=== PATIENT | female | born 1960 | race Caucasian/White ===

== ENCOUNTER 2023-10-01 21:54 | Emergency (ER) | payer MEDICARE, MEDICAID ==
[~2023-10-01] VITALS: Ht 160 cm; Wt 70.3 kg
[2023-10-01] MEDS ORDERED: EPINEPHrine 5 MG in DEXTROSE 5%-WATER 245 ML IV PRN (22:15)
[2023-10-01 22:17] VITALS: BP 114/82; PULSE 59; RESP 12
[2023-10-01 22:43] LABS: MEAN CORPUSCULAR VOLUME 91 fL (80-100); RED BLOOD CELL COUNT(AUTO) 0.55 MIL/uL (4.00-5.20)
[2023-10-01 22:46] LABS: BASOPHILS % (AUTO) 1.8 % (0.0-2.0); EOSINOPHILS % (AUTO) 14.2 % (1.0-6.0); LYMPHOCYTES # (AUTO) 0.1 K/uL (1.0-4.8); LYMPHOCYTES % (AUTO) 16.1 % (22.0-44.0); MEAN CORPUSCULAR HEMOGLOBIN 25.3 pg (26.0-34.0); MEAN CORPUSCULAR HGB CONC 27.7 G/dL (31.0-37.0); MONOCYTES % (AUTO) 6.2 % (2.0-9.0); NEUTROPHILS # (AUTO) 0.5 K/uL (1.8-7.7); NEUTROPHILS % (AUTO) 61.7 % (40.0-70.0); PLATELET COUNT (AUTO) 33 K/uL (150-450); RED CELL DISTRIBUTION WIDTH 20.4 % (11.5-14.5)
[2023-10-01 22:50] LABS: ANION GAP 14 mmol/L (8-16); UREA NITROGEN, BLOOD 5 mg/dL (7-18)
[2023-10-01 22:54] LABS: TROPONIN I-HIGH SENSITIVITY 19 ng/L (<51)
[2023-10-01 22:59] LABS: B-TYPE NATRIURETIC PEPTIDE 13 pg/mL (0-100)
[2023-10-01 23:00] LABS: CHLORIDE 133 mmol/L (98-107); SODIUM SERUM 152 mmol/L (136-145)
[2023-10-01 23:01] LABS: CREATININE < 0.15 mg/dL (0.60-1.30); GLOMERULAR FILTR. RATE CALC > 60 mL/min (>60)
[2023-10-01 23:06] LABS: CARBON DIOXIDE 6 mmol/L (22-29); GLUCOSE,RANDOM 22 mg/dL (70-110); POTASSIUM < 1.0 mmol/L (3.5-5.1)
[2023-10-01 23:07] LABS: CALCIUM, TOTAL < 5.0 mg/dL (8.8-10.5)
[2023-10-01 23:09] LABS: HEMOGLOBIN 1.4 g/dL (12.0-16.0); WHITE BLOOD COUNT (AUTO) 1.5 K/uL (4.5-11.0)
== END 2023-10-02 01:50 ==
LOC: EMS 21:56
DX: I46.9 Cardiac arrest, cause unspecified (principal)
CPT/HCPCS: 99285; 92950; 31500; 80048; 83735; 83880; 84484; 85025; 36415; 93005; J7060; J0171